=== PATIENT | male | born 1995 | race Caucasian/White ===

== ENCOUNTER 2022-11-04 09:46 | Outpatient (CLI) | payer OTHER ==
[~2022-11-04 09:46] MED LIST: GADOBUTROL 10 MMOL/10 ML VIAL ONE
[2022-11-04] MEDS ORDERED: GADOBUTROL 10 MMOL/10 ML VIAL IVP ONE (14:32)
--- NOTE | 2022-11-04 18:00 | MRI Report ---
PROCEDURE: BRAIN W/WO INDICATIONS: COUGH HEAD ACHE CONTRAST: sarai 10ml TECHNIQUE: Noncontrast axial T1 spin echo, axial T2 fast spin echo, sagittal and axial FLAIR, coronal T2 fast sp in echo, axial gradient echo, axial diffusion and ADC through the brain. After the administration of contrast, axial and coronal T1 spin echo with fat saturation through the brain. COMPARISON: None. FINDINGS: Image quality: Excellent. CSF spaces: Basal cisterns are patent. No extra-axial fluid collections. Ventricles are normal in size and shape. Brain: No midline shift. No intracranial bleeds or masses. No abnormal intracranial enhancement. There is cerebral volume loss for age. There is periventricular white matter chronic small vessel is chemic change. The brainstem appears normal. Diffusion-weighted images demonstrate no acute ischemi c insults. No chronic ischemic insults. Normal intravascular flow voids are present. Skull and face: Calvarial marrow is normal in signal. Orbits appear normal. Sinuses: Mild bilateral ethmoid sinus mucosal thickening. Sinuses and mastoids otherwise appear clear . IMPRESSION: 1. No acute intracranial abnormality. No recent infarct. 2. Sinus disease. Reviewed by: Tala Whitehead MD on 11/04/2022 4:59 PM [facility] Approved by: Tala Whitehead MD on 11/04/2022 4:59 PM [facility] Station ID: [id number]
== END 2022-11-04 09:47 | disposition home or self-care (01) ==
LOC: DI 09:46
PROVIDERS: ATTEND General Practice
DX: R51.9 Headache, unspecified (principal); J32.9 Chronic sinusitis, unspecified
CPT/HCPCS: 70553; A9585

== ENCOUNTER 2022-12-18 15:33 | Outpatient (CLI) | payer OTHER ==
[2022-12-18] MEDS ORDERED: GADOBUTROL 10 MMOL/10 ML VIAL IVP ONE (17:06)
--- NOTE | 2022-12-21 09:49 | MRI Report ---
PROCEDURE: BRAIN W/WO INDICATIONS: HYPOPITUITARISM CONTRAST: GADAVIST 9.7 TECHNIQUE: Noncontrast axial T1 spin echo, axial T2 fast spin echo, sagittal and axial FLAIR, coronal T2 fast sp in echo, axial gradient echo, axial diffusion and ADC through the brain. After the administration of contrast, axial and coronal T1 spin echo with fat saturation through the brain. COMPARISON: MRI brain 11/04/2022 FINDINGS: Image quality: Excellent. CSF spaces: Basal cisterns are patent. No extra-axial fluid collections. Ventricles are normal in size and shape. Brain: No midline shift. No intracranial bleeds or masses. No abnormal intracranial enhancement. There is cerebral volume loss for age. The brainstem appears normal. Diffusion-weighted images demo nstrate no acute ischemic insults. No chronic ischemic insults. Normal intravascular flow voids are present. The pituitary is normal. No pituitary masses are identified. Skull and face: Calvarial marrow is normal in signal. Orbits appear normal. Sinuses: Sinuses and mastoids appear clear. IMPRESSION: The pituitary is normal in appearance. No pituitary masses are identified. Reviewed by: Adeel Fox MD on 12/21/2022 9:48 AM PDT Approved by: Adeel Fox MD on 12/21/2022 9:48 AM PDT Station ID: [id number]
== END 2022-12-18 15:34 | disposition home or self-care (01) ==
LOC: DI 15:33
PROVIDERS: ATTEND Internal Medicine
DX: E23.0 Hypopituitarism (principal); I12.9 Hypertensive chronic kidney disease with stage 1 through stage 4 chronic kidney disease, or unspecified chronic kidney disease; N18.2 Chronic kidney disease, stage 2 (mild); E66.9 Obesity, unspecified
CPT/HCPCS: 70553; A9585